=== PATIENT | male | born 1955 | race African-American/Black ===

== ENCOUNTER 2016-12-08 13:16 | Outpatient (RCR) | payer OTHER ==
[2016-12-16] MEDS ORDERED: BP MED (16:00)
[2016-12-16] MEDS ORDERED: METFORMIN (16:00)
== END 2017-01-05 14:50 | disposition home or self-care (01) ==
PROVIDERS: ATTEND Nurse Practitioner
DX: I69.351 Hemiplegia and hemiparesis following cerebral infarction affecting right dominant side (principal); I69.320 Aphasia following cerebral infarction

== ENCOUNTER 2016-12-08 13:16 | Outpatient (RCR) | payer OTHER | END 2016-12-08 15:28 | disposition home or self-care (01) | PROVIDERS: ATTEND Nurse Practitioner | DX: I69.320 Aphasia following cerebral infarction (principal) ==

== ENCOUNTER 2016-12-16 15:48 | Emergency (ER) | payer OTHER ==
[~2016-12-16] VITALS: Ht 177.8 cm; Wt 98.0 kg
[2016-12-16] MEDS ORDERED: METFORMIN (16:00)
[2016-12-16] MEDS ORDERED: BP MED (16:00)
--- NOTE | 2016-12-16 16:35 | ED General ---
General Chief Complaint: Cardiac/General Problems Stated Complaint: HIGH BP Nursing Triage Note: ARRIVED VIA AMB TO ROOM 07 VIA WC FROM OUTPT REHAB. SENT HERE DUE TO X3 HIGH BP READINGS THERE. PT STATES HE HAS TAKEN TWO OF HIS BP MEDS TODAY. DENIES CP OR SOA. PT DOES NOT KNOW NAMES OF MEDICATIONS. Nursing Sepsis Screen: No Definite Risk Source of Information: Patient Exam Limitations: No Limitations History of Present Illness Time Seen by Provider: 16:10 Initial Comments Here from outpatient rehabilitation area. Reportedly has had blood pressure and they were concerned so brought him over here for evaluation. [place] with the [place] [facility] out of [facility]. Patient is on blood pressure medicines and is participating in rehabilitation due to history of multiple CVAs. Patient denies any complaints currently and is at his normal functional status and states feels well otherwise. He does not know his blood pressure medicines. Timing/Duration: 1/2 Hour Severity: Mild Associated Systoms: Denies Symptoms Allergies and Home Medications Allergies Coded Allergies: No Known Drug Allergies (Unverified , 12/16/16) Home Medications [Bp Med] , (Reported) [Metformin] , (Reported) Constitutional: see HPI, No chills, No fever EENTM: no symptoms reported Respiratory: no symptoms reported Cardiovascular: see HPI, No chest pain, No edema Gastrointestinal: No nausea, No vomiting Genitourinary: no symptoms reported Psychiatric/Neurological: No Symptoms Reported, Denies Headache, Pre-Existing Deficit (speech difficulty related to previous stroke as well as weakness on the right side.) Past Ilflkbb-Ieblvt-Bvevts Hx Patient Social History Alcohol Use: Occasionally Uses Recreational Drug Use: No (PAST HX OF COCAINE USE. ) Smoking Status: Current Everyday Smoker Recent Foreign Travel: No Contact w/Someone Who Travel: No Recent Infectious Disease Expo: No Surgeries HX Surgeries: No (does not report any history but poor historian) Cardiovascular Hx Cardiac Disorders: Yes Cardiac Disorders: Coronary Artery Disease, Hypertension Neurological Hx Neurological Disorders: Yes Neurological Disorders: Stroke Endocrine Endocrine Disorders: Diabetes, Non-Insulin dep Psychosocial Behavioral Health Disorders: Depression Physical Exam Vital Signs Vital Sign - Last 12Hours 12/16/16 15:53 Temp 98.0 Pulse 75 Resp 18 B/P (MAP) 178/101 Pulse Ox 97 Capillary Refill : Less Than 3 Seconds General Appearance: No Apparent Distress, WD/WN HEENT: PERRL/EOMI, Pharynx Normal Neck: Non Tender, Supple Respiratory: Lungs Clear, Normal Breath Sounds Cardiovascular: Regular Rate, Rhythm, No Murmur Neurologic/Psychiatric: Alert, Oriented x3, Motor Weakness (right-sided at baseline), Other (speech difficulty and aphasia status post stroke at baseline per patient.) Progress/Results/Core Measures Results/Orders My Orders Orders - ELENITA REDDING MD Amlodipine Tablet (Norvasc Tablet) (12/16/16 16:45) Vital Signs/I&O Vital Sign - Last 12Hours 12/16/16 15:53 Temp 98.0 Pulse 75 Resp 18 B/P (MAP) 178/101 Pulse Ox 97 Blood Pressure Mean: 126 Progress Note : Progress Note Seen and evaluated. I did call the [place] [facility] and was able take get his blood pressure medicines which include metoprolol 50 mg by mouth twice a day and amlodipine 5 mg by mouth every morning. I have requested that the patient follow up in clinic and the triage nurse put a note and they get follow-up within 1 week. We will increase his amlodipine to 10 mg every morning. We will give first dose now. This was discussed with the patient who agreed. Discharged home with return precautions. Patient verbalize understanding instructions and agreement with plan. Departure Impression Impression: Primary Impression: Uncontrolled hypertension Disposition: 01 HOME, SELF-CARE Condition: Improved Departure-Patient Inst. Decision time for Depature: 16:58 Referrals: MAT HARLEY (PCP/Family) Primary Care Physician Patient Instructions: High Blood Pressure (DC) Add. Discharge Instructions: All discharge instructions reviewed with patient and/or family. Voiced understanding. You will need to increase your amlodipine from 5 mg every morning to 10 mg every morning. I did discuss the case with the [place] nurse and she reports that your medication currently is the 10 mg dose that you are splitting and half. Do not take more than 10 mg daily of the amlodipine. Follow-up with the clinic within one week. They should call you but I do recommend that you call the clinic tomorrow for follow-up appointment. They should have a note in your chart documenting the discussion I had with the triage nurse. Return for worse pain, fever, vomiting, weakness, breathing problems or other concerns as needed. ELENITA REDDING MD Dec 16, 2016 16:35
[2016-12-16] MEDS ORDERED: amLODIPine 5 MG (NORVASC) TAB PO ONE (16:45)
[2016-12-16 17:20] VITALS: BP 158/96
== END 2016-12-16 17:20 | disposition home or self-care (01) ==
LOC: EDUNIT# 15:48 → ER 15:50
DX: I10 Essential (primary) hypertension (principal); I25.10 Atherosclerotic heart disease of native coronary artery without angina pectoris; E11.9 Type 2 diabetes mellitus without complications; F32.9 Major depressive disorder, single episode, unspecified; F17.200 Nicotine dependence, unspecified, uncomplicated; Z86.73 Personal history of transient ischemic attack (TIA), and cerebral infarction without residual deficits
CPT/HCPCS: 99283

== ENCOUNTER 2016-12-18 14:49 | Outpatient (RCR) | payer OTHER ==
[~2016-12-18 14:49] MED LIST: BP MED; METFORMIN
== END 2017-01-13 09:52 | disposition home or self-care (01) ==
PROVIDERS: ATTEND Nurse Practitioner
DX: I69.351 Hemiplegia and hemiparesis following cerebral infarction affecting right dominant side (principal); I69.320 Aphasia following cerebral infarction

== ENCOUNTER 2017-03-26 13:58 | Outpatient (RCR) | payer OTHER | END 2017-03-31 10:24 | disposition home or self-care (01) | PROVIDERS: ATTEND Nurse Practitioner | DX: I69.351 Hemiplegia and hemiparesis following cerebral infarction affecting right dominant side (principal); I10 Essential (primary) hypertension; E11.9 Type 2 diabetes mellitus without complications; F32.9 Major depressive disorder, single episode, unspecified; F17.210 Nicotine dependence, cigarettes, uncomplicated ==

== ENCOUNTER 2017-06-24 13:00 | Outpatient (RCR) | payer OTHER | END 2017-06-24 14:51 | disposition home or self-care (01) | PROVIDERS: ATTEND Nurse Practitioner | DX: I69.322 Dysarthria following cerebral infarction (principal) ==

== ENCOUNTER 2017-06-28 13:07 | Outpatient (RCR) | payer OTHER | END 2017-07-05 13:27 | disposition home or self-care (01) | PROVIDERS: ATTEND Nurse Practitioner | DX: R53.1 Weakness (principal); R26.81 Unsteadiness on feet; Z86.73 Personal history of transient ischemic attack (TIA), and cerebral infarction without residual deficits ==

== ENCOUNTER 2021-01-10 18:19 | Emergency (ER) | payer OTHER ==
[~2021-01-10] VITALS: Ht 180.3 cm; Wt 95.2 kg
[~2021-01-10 18:19] MED LIST changes: +CLOP75TA69 PO
[2021-01-10 18:50] VITALS: BP 153/95
--- NOTE | 2021-01-10 19:12 | ED Upper Extremity ---
General Stated Complaint: R HAND LAC Source: patient Exam Limitations: no limitations (SHANNEN WATSON APRN) History of Present Illness Date Seen by Provider: Jan 10, 2021 Time Seen by Provider: 19:08 Initial Comments To ER with laceration of the dorsal aspect of the right pointer finger from a bottle that he was trying to open. Tetanus is not up-to-date. Onset: just prior to arrival Severity: moderate Pain/Injury Location: right 2nd finger Method of Injury: unknown Modifying Factors: Worse With Movement (SHANNEN WATSON APRN) Allergies and Home Medications Allergies Coded Allergies: No Known Drug Allergies (Unverified , 12/16/16) Patient Home Medication List Home Medication List Reviewed: Yes (SHANNEN WATSON APRN) Clopidogrel Bisulfate (Plavix) 75 Mg Tablet, 75 MG PO DAILY Prescribed by: NEHA PLUMMER on 12/27/172012 [Bp Med] , (Reported) Entered as Reported by: BLAS GREER on 12/16/161599 [Metformin] , (Reported) Entered as Reported by: BLAS GREER on 12/16/16 1600 Review of Systems Constitutional: see HPI EENTM: see HPI Respiratory: no symptoms reported Cardiovascular: no symptoms reported Genitourinary: no symptoms reported Musculoskeletal: see HPI Skin: no symptoms reported Psychiatric/Neurological: No Symptoms Reported (SHANNEN WATSON APRN) Past Rzzxhgw-Ysfgig-Yqujbu Hx Past Medical History Surgeries: Yes (HEART STENT) Respiratory: No Cardiac: Yes Coronary Artery Disease, Hypertension Neurological: Yes (STROKE X5, chronic dysarthria and disequilibrium) Stroke Reproductive Disorders: No Genitourinary: No Gastrointestinal: No Musculoskeletal: No Endocrine: Yes Diabetes, Non-Insulin dep HEENT: No Cancer: No Did You Recieve Any Treatments: No Psychosocial: Yes Depression Integumentary: No (SHANNEN WATSON APRN) Physical Exam Vital Signs Vital Signs - First Documented 01/10/21 18:50 Temp 37.4 Pulse 90 Resp 18 B/P (MAP) 153/95 (114) Pulse Ox 98 (NEHA ALEX MD) Vital Signs Capillary Refill : (SHANNEN WATSON APRN) Height, Weight, BMI Height: 5'11.00" Weight: 220lbs. oz. 99.095777qf; BMI Method:Stated General Appearance: WD/WN, no apparent distress Neck: non-tender, full range of motion Respiratory: no respiratory distress, no accessory muscle use Elbow/Forearm: normal inspection, non-tender Wrist: Yes normal inspection Hand: normal inspection, Right, laceration (1cm laceration depth to subq tissue with active bleeding to right middle finger. This was anesthetized locally with 1ml lidocaine without epi, scrubbed with chlorhexidine with saline solution then closed with 3 simple interrupted sutures 5-0 prolene. ) Neurologic/Psychiatric: alert, normal mood/affect, oriented x 3 Skin: normal color, warm/dry (SHANNEN WATSON APRN) Progress/Results/Core Measures Results/Orders Medications Given in ED Current Medications Medications Dose Ordered Sig/Elva Route Start Time Stop Time Status Last Admin Dose Admin Diphtheria/ Tetanus/Acell Pertussis 0.5 ml ONCE ONCE IM 01/10/21 19:15 01/10/21 19:16 DC 01/10/21 19:25 0.5 ML (NEHA ALEX MD) Vital Signs/I&O 01/10/21 18:50 Temp 37.4 Pulse 90 Resp 18 B/P (MAP) 153/95 (114) Pulse Ox 98 (NEHA ALEX MD) Departure Impression Primary Impression: Finger laceration Disposition: 01 HOME, SELF-CARE Condition: Stable Departure-Patient Inst. Decision time for Depature: 19:10 (SHANNEN WATSON APRN) Referrals: NO,LOCAL PHYSICIAN (PCP/Family) Primary Care Physician Patient Instructions: Laceration Repair With Stitches (DC) Add. Discharge Instructions: 1. Return to ER for any concerns 2. You can wash your hands starting this evening but do not soak it in water such as a bathtub hot tub or swimming pool. Return to ER in 7 days to have the stitches removed ATTENDING PHYSICIAN NOTE: I was physically present as attending physician in the emergency department during the care of this patient, but I was not directly involved in the decision making or delivery of care for this patient. (NEHA ALEX MD) SHANNEN WATSON APRN Jan 10, 2021 19:12 NEHA ALEX MD Jan 10, 2021 20:26
[2021-01-10] MEDS ORDERED: TETANUS,DIPTH,PERTUSS P/F (BOOSTRIX) 0.5 ML VIAL IM ONE (19:15)
== END 2021-01-10 19:30 | disposition home or self-care (01) ==
LOC: EDUNIT# 18:19 → ER 18:21
DX: S61.210A Laceration without foreign body of right index finger without damage to nail, initial encounter (principal); I10 Essential (primary) hypertension; E11.9 Type 2 diabetes mellitus without complications; Z86.73 Personal history of transient ischemic attack (TIA), and cerebral infarction without residual deficits; Z23 Encounter for immunization; Z79.01 Long term (current) use of anticoagulants; Z79.84 Long term (current) use of oral hypoglycemic drugs; Z79.899 Other long term (current) drug therapy; W26.8XXA Contact with other sharp object(s), not elsewhere classified, initial encounter
CPT/HCPCS: 12001; 90715

== ENCOUNTER 2021-01-17 16:01 | Emergency (ER) | payer OTHER ==
[~2021-01-17] VITALS: Ht 177.8 cm; Wt 85.7 kg
[2021-01-17 16:05] VITALS: BP 137/68
== END 2021-01-17 16:58 | disposition home or self-care (01) ==
LOC: EDUNIT# 16:01 → ER 16:02
DX: Z48.02 Encounter for removal of sutures (principal)

== ENCOUNTER 2022-06-10 10:44 | Emergency (ER) | payer OTHER ==
[~2022-06-10] VITALS: Ht 177.8 cm; Wt 86.0 kg
[~2022-06-10 10:44] MED LIST changes: +CLOP-31 PO; -CLOP75TA69 PO
--- NOTE | 2022-06-10 10:55 | ED EENT ---
History of Present Illness General Chief Complaint: Nasal Problems Stated Complaint: BLOODY NOSE Source: patient, EMS Exam Limitations: no limitations History of Present Illness Date Seen by Provider: Jun 10, 2022 Time Seen by Provider: 10:48 Initial Comments Patient is a 66-year-old male who presents to the emergency department today with a chief complaint of nosebleed. Patient thinks it started approximately an hour prior to arrival. He denies any pain. No trauma, no nose picking. No recent illnesses. He is not nauseous currently. History of stroke currently on Plavix and aspirin. Has never had nosebleeds before. Timing/Duration: abrupt Severity: severe Location: nose Prearrival Treatment: squeezing nostrils Associated Symptoms: denies symptoms Allergies and Home Medications Allergies Coded Allergies: No Known Drug Allergies (Unverified , 12/16/16) Patient Home Medication List Home Medication List Reviewed: Yes Amoxicillin/Potassium Clav (Amox Tr-K Clv 875-125 mg Tab) 875 Mg-125 Mg Tablet, 1 EACH PO BID Prescribed by: JUMANA ZAPIEN on 06/10/22 1151 Clopidogrel Bisulfate (Plavix) 75 Mg Tablet, 75 MG PO DAILY Prescribed by: NEHA PLUMMER on 12/27/172012 [Bp Med] , (Reported) Entered as Reported by: BLAS GREER on 12/16/161599 [Metformin] , (Reported) Entered as Reported by: BLAS GREER on 12/16/16 1600 Review of Systems Review of Systems Constitutional: see HPI Eyes: No Symptoms Reported Ears: No Symptoms Reported Nose: clots, epistaxis Mouth: no symptoms reported Throat: no symptoms reported Respiratory: no symptoms reported Cardiovascular: no symptoms reported Past Jtpqrxz-Lhakcd-Zibknt Hx Immunizations Up To Date First/Initial COVID19 Vaccinat: DECEMBER 2020 Second COVID19 Vaccination Luis: 01-08-21 Past Medical History Surgeries: Yes (HEART STENT) Respiratory: No Cardiac: Yes Coronary Artery Disease, Hypertension Neurological: Yes (STROKE X5, chronic dysarthria and disequilibrium) Stroke Reproductive Disorders: No Genitourinary: No Gastrointestinal: No Musculoskeletal: No Endocrine: Yes Diabetes, Non-Insulin dep HEENT: No Cancer: No Did You Recieve Any Treatments: No Psychosocial: Yes Depression Integumentary: No Physical Exam Vital Signs Vital Signs - First Documented 06/10/22 10:44 Pulse 62 Resp 16 B/P (MAP) 180/112 (134) Pulse Ox 98 O2 Delivery Room Air Height, Weight, BMI Height: 5'11.00" Weight: 220lbs. oz. 99.592225kg; 29.00 BMI Method:Actual General Appearance: WD/WN, no apparent distress Eyes: bilateral eye normal inspection, bilateral eye PERRL, bilateral eye EOMI Ears: bilateral ear auricle normal, bilateral ear TM normal Nose: active bleeding (left nare) Mouth/Throat: pharynx normal, other (blood posterior pharynx; otherwise normal oral mucosa) Neck: supple, normal inspection Cardiovascular: regular rate, rhythm Respiratory: lungs clear, normal breath sounds, no respiratory distress, no accessory muscle use Gastrointestinal: non tender, soft Neurologic/Psychiatric: alert, normal mood/affect, oriented x 3 Skin: normal color, warm/dry Procedures/Interventions Nasal : Nasal Location: Left Clots Cleared from Nasal: Patient Blowing Nasal Drops Instilled: Afrin, Lidocaine Nasal Procedures: Rapid Rhino Progress rapid rhino soaked in a 2:1:1 mixture of Afrin/Lido 1% with Epi and TXA; i nserted into left nare. 1130am Progress/Results/Core Measures Results/Orders Lab Results My Orders Medications Given in ED Vital Signs/I&O Progress Progress Note : Time: 11:45 Progress Note Patient seen and evaluated by me, 66-year-old with a nosebleed onset this morning. Evaluation today includes physical exam. CBC was obtained to evaluate hemoglobin. His vital signs are stable. Differential diagnosis anterior versus posterior nosebleed. On examination after having the patient clear his nasal passageways the left nare shows many areas of irritation along the septum with continued oozing of blood. Pressure had been maintained for approximately 20 to 25 minutes prior to evacuation of the clots and bleeding from the left nare. Rapid Rhino was soaked in a 2 to one-to-one ratio of Afrin, lido with epi and TXA. It was placed with some discomfort. Patient did experience several bouts of sneezing. Hemostasis appears to have been achieved after placement. Patient will be placed on Augmentin for 1 week. Advised to follow-up with his primary care doctor also given referral information for Dr. Trujillo's ENT clinic. His sister, whom he lives with is at the bedside. I have communicated the plan of care with her. All questions are sought and answered. Patient is improved at discharge. Departure Impression Primary Impression: Epistaxis Disposition: 01 HOME, SELF-CARE Condition: Improved Departure-Patient Inst. Decision time for Depature: 11:47 Referrals: TESSA TRUJILLO MD NO,LOCAL PHYSICIAN (PCP) Primary Care Physician Patient Instructions: Nosebleeds ED Add. Discharge Instructions: Keep the nasal tampon in place for the next 3 days. I have written a prescription for an antibiotic that you need to take twice a day for the next 5 days. If you experience any return of bleeding, fevers, increased facial pain or any other emergent concerns please come back to the emergency room for reevaluation. I have given you contact information for Dr. Trujillo, ENT doctor. Please make an appointment to see him, possibly Wednesday. Otherwise your primary care physician can remove the nasal packing Wednesday Scripts Amoxicillin/Potassium Clav (Amox Tr-K Clv 875-125 mg Tab) 875 Mg-125 Mg Tablet 1 EACH PO BID for 5 Days, #10 TAB Prov: JUMANA ZAPIEN MD 06/10/22 JUMANA ZAPIEN MD Jun 10, 2022 10:55
[2022-06-10] MEDS ORDERED: TRANEXAMIC ACID INJECTION 1,000 MG in NS (IVPB) 50 ML IV ONE (11:00)
[2022-06-10] MEDS ORDERED: OXYMETAZOLINE (AFRIN) 0.05% NA 30 ML BTL ONE (11:00)
[2022-06-10] MEDS ORDERED: TRANEXAMIC ACID 100 MG/ML 10 ML INJECTION ONE (11:00)
[2022-06-10] MEDS ORDERED: LIDOCAINE/EPI 2% 1:100,00 (XYLOCAINE) 20 ML VIAL INJ ONE (11:00)
[2022-06-10] MEDS ORDERED: amLODIPine 10 MG (NORVASC) TAB PO ONE (11:15)
[2022-06-10] MEDS ORDERED: meTOproloL SUCCINATE 50 MG (TOPROL XL) TAB PO SCH (11:15)
[2022-06-10 11:39] LABS: BASOPHILS # (AUTO) 0.1 10^3/uL (0.0-0.1); BASOPHILS % (AUTO) 1 % (0-10); EOSINOPHILS # (AUTO) 0.2 10^3/uL (0.0-0.3); EOSINOPHILS % (AUTO) 2 % (0-10); HEMATOCRIT 47 % (40-54); HEMOGLOBIN 14.7 g/dL (13.3-17.7); LYMPHOCYTES # (AUTO) 1.6 10^3/uL (1.0-4.0); LYMPHOCYTES % (AUTO) 21 % (12-44); MEAN CORPUSCULAR HEMOGLOBIN 25 pg (25-34); MEAN CORPUSCULAR HGB CONC 32 g/dL (32-36); MEAN CORPUSCULAR VOLUME 78 fL (80-99); MEAN PLATELET VOLUME 10.4 fL (9.0-12.2); MONOCYTES # (AUTO) 0.6 10^3/uL (0.0-1.0); MONOCYTES % (AUTO) 8 % (0-12); NEUTROPHILS # (AUTO) 5.3 10^3/uL (1.8-7.8); NEUTROPHILS % (AUTO) 69 % (42-75); PLATELET COUNT 194 10^3/uL (130-400); WHITE BLOOD COUNT 7.7 10^3/uL (4.3-11.0)
[2022-06-10] MEDS ORDERED: AMOX1TAB12 PO (11:51)
[2022-06-10 12:40] VITALS: BP 163/100
[2022-06-10] MEDS ORDERED: OXYMETAZOLINE (AFRIN) 0.05% NA 30 ML BTL SCH (21:00)
== END 2022-06-10 12:41 | disposition home or self-care (01) ==
LOC: EDUNIT# 10:49 → ER 10:50
DX: R04.0 Epistaxis (principal); Z86.73 Personal history of transient ischemic attack (TIA), and cerebral infarction without residual deficits; Z79.82 Long term (current) use of aspirin; Z79.02 Long term (current) use of antithrombotics/antiplatelets
CPT/HCPCS: 30901; 36415; 85025

== ENCOUNTER 2023-01-19 14:55 | Observation (INO) | payer OTHER ==
[~2023-01-19] VITALS: Ht 180 cm; Wt 96.3 kg
[~2023-01-19 14:55] MED LIST changes: +AMOX1TAB12 PO
--- NOTE | 2023-01-19 15:16 | ED Neurological Problem ---
General Chief Complaint: Neuro-Stroke Like Symptoms Stated Complaint: POSSIBLE STROKE Source: patient, family, EMS Exam Limitations: no limitations History of Present Illness Date Seen by Provider: Jan 19, 2023 Time Seen by Provider: 15:18 Initial Comments Patient presents via EMS for reported stroke. [facility] health nurse arrived [facility] today, patient has baseline weakness on the right side and some dysphagia secondary to previous strokes. He has had 10 strokes in the past most recent 5 years ago. Home health reportedly told EMS that he seemed to be weaker on both sides and had worsening word searching. Upon arrival patient denies feeling weaker on one side or the other he is alert and oriented able to follow commands. He will spell words that he feels that he cannot pronounce correctly. Sister is in room and states that patient appears to be at baseline. Neither patient nor sister seem significantly concerned. Advised that based on evaluation and report last known well time was Wednesday when patient visited his sister therefore not a tPA candidate in either case. Although sister states he is at his baseline currently. Patient denies recent illness change in medication or other symptoms concerns or problems. Severity: mild Associated Symptoms: denies symptoms Allergies and Home Medications Allergies Coded Allergies: No Known Drug Allergies (Unverified , 12/16/16) Patient Home Medication List Home Medication List Reviewed: Yes Amlodipine Besylate (Amlodipine Besylate) 10 Mg Tablet, 10 MG PO DAILY, (Reported) Entered as Reported by: BLAS GREER on 01/19/231725 Last Action: New Order Atorvastatin Calcium (Atorvastatin Calcium) 80 Mg Tablet, 80 MG PO HS, (Reported) Entered as Reported by: BLAS GREER on 01/19/231725 Last Action: New Order Clopidogrel Bisulfate (Plavix) 75 Mg Tablet, 75 MG PO DAILY Prescribed by: NEHA PLUMMER on 12/27/172012 Gabapentin (Gabapentin) 300 Mg/6 Ml (6 Ml) Solution, 300 MG PO HS, (Reported) Entered as Reported by: BLAS GREER on 01/19/231726 Last Action: New Order Metformin HCl (Metformin HCl) 500 Mg Tablet, 500 MG PO BID, (Reported) Entered as Reported by: BLAS GREER on 01/19/231726 Last Action: New Order Metoprolol Succinate (Toprol Xl) 50 Mg Tab.er.24h, 50 MG PO DAILY, (Reported) Entered as Reported by: BLAS GREER on 01/19/231725 Last Action: New Order [Sinasterive] , 5 MG PO DAILY, (Reported) Entered as Reported by: BLAS GREER on 01/19/231726 Last Action: New Order Discontinued Medications Amoxicillin/Potassium Clav (Amox Tr-K Clv 875-125 mg Tab) 875 Mg-125 Mg Tablet, 1 EACH PO BID Discontinued Reason: No Longer Taking Prescribed by: JUMANA ZAPIEN on 06/10/22 1151 Last Action: Discontinued [Bp Med] , (Reported) Discontinued Reason: No Longer Taking Entered as Reported by: BLAS GREER on 12/16/161599 Last Action: Discontinued [Metformin] , (Reported) Discontinued Reason: No Longer Taking Entered as Reported by: BLAS GREER on 12/16/161599 Last Action: Discontinued Review of Systems Review of Systems Constitutional: no symptoms reported Eyes: No Symptoms Reported Ears, Nose, Mouth, Throat: no symptoms reported Respiratory: no symptoms reported Cardiovascular: no symptoms reported Gastrointestinal: no symptoms reported Genitourinary: no symptoms reported Musculoskeletal: no symptoms reported Skin: no symptoms reported Psychiatric/Neurological: No Symptoms Reported Endocrine: No Symptoms Reported Hematologic/Lymphatic: No Symptoms Reported All Other Systems Reviewed Negative Unless Noted: Yes Past Lfqzfyl-Pmigsk-Hqzaxo Hx Patient Social History Tobacco Use?: Yes Smoking Status: Current Everyday Smoker Substance use?: No Alcohol Use?: No Pt feels they are or have been: No Immunizations Up To Date First/Initial COVID19 Vaccinat: RECEIVED, UNK WHEN Second COVID19 Vaccination Luis: RECEIVED, UNK WHEN Third COVID19 Vaccination Date: DECEMBER 2020 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 Past Medical History Surgeries: Yes (HEART STENT) Respiratory: No Cardiac: Yes Coronary Artery Disease, Hypertension Neurological: Yes (STROKE X5, chronic dysarthria and disequilibrium) Stroke Reproductive Disorders: No Genitourinary: No Gastrointestinal: No Musculoskeletal: No Endocrine: Yes Diabetes, Non-Insulin dep HEENT: No Cancer: No Did You Recieve Any Treatments: No Psychosocial: Yes Depression Integumentary: No Physical Exam Vital Signs Vital Signs - First Documented 01/19/23 15:00 Temp 36.8 Pulse 79 Resp 16 B/P (MAP) 184/122 (142) Pulse Ox 96 O2 Delivery Room Air Capillary Refill : Height, Weight, BMI Height: 5'11.00" Weight: 220lbs. oz. 99.308102mg; 27.00 BMI Method:Actual General Appearance: WD/WN, no apparent distress HEENT: PERRL/EOMI, normal ENT inspection, pharynx normal Neck: non-tender, full range of motion, supple Respiratory: chest non-tender, lungs clear, normal breath sounds, no respiratory distress, no accessory muscle use Cardiovascular: regular rate, rhythm, no edema Gastrointestinal: normal bowel sounds, non tender, soft Back: normal inspection, no CVA tenderness Extremities: normal range of motion, non-tender, normal inspection, no pedal edema, no calf tenderness Neurologic/Psychiatric: alert, normal mood/affect, oriented x 3, other (Patient is at baseline per sister) Motor/Sensory: weak motor strength RUE (Residual from old stroke) Skin: normal color, warm/dry Lymphatic: no adenopathy Stroke Onset of Symptoms Date of Onset of Symptoms: Jan 17, 2023 Symptoms onset unknown: Yes NIH Stroke Scale Assessment Select: Initial Level of Consciousness: 0=Alert (0), Level of Consciousness- Questions: 0=Answers both month/age (0), LOC Commands: 0=Performs both tasks (0), Gaze: Normal (0), Visual [place]: 0=No visual loss (0), Facial Movement (Facial Paresis): 1=Minor paralysis (1), Motor Function-Arms Right: 1=Drift (1), Motor Function-Arms Left: 0=No drift (0), Motor Function-Legs Right: 0=No drift (0), Motor Function-Legs Left: 0=No drift (0), Limb Ataxia: 2=Present in two limbs (2), Sensory: 0=Normal:no loss (0), Best Language: 1=Mild to moderat aphasia (1), Dysarthria: 1=Mild to moderate loss (1), Extinction & Inattention: 0=No abnormality (0), Total: 6 Stroke Thrombolytic Exclusion Age 18 or Over: Yes Acute intenal hemorrhage: No History of CVA: Yes Uncontrolled Coagulation Defec: No Intracranial Hemorrhage: No Severe Hypertension: Yes GI or Bleed: No Subarachnoid Hemorrhage: No Intracranial Neoplasm/Aneurysm: No Oral Anticoagulants: Yes Surgery or Trauma: No Puncture of Non-Compressible V: No Recent CPR: No Diabetic Hemorrhagic Retinopat: No Organ Biopsy: No Recent Obstetric Delivery: No Glucose: No Significant Hepatic Dysfunctio: No NIH Stoke Scale >22: No Bacterial Endocarditis: No Pericarditis: No Improving Symptoms: Yes Platelets: No TPA Contraindication: Yes IV - TPa Received IV - TPa Procedure Performed?: No Progress/Results/Core Measures Results/Orders Lab Results Laboratory Tests Test 01/19/23 15:02 01/19/23 15:04 01/19/23 16:45 Range/Units White Blood Count 7.2 4.3-11.0 10^3/uL Red Blood Count 6.44 H 4.30-5.52 10^6/uL Hemoglobin 15.8 13.3-17.7 g/dL Hematocrit 50 40-54 % Mean Corpuscular Volume 77 L 80-99 fL Mean Corpuscular Hemoglobin 25 25-34 pg Mean Corpuscular Hemoglobin Concent 32 32-36 g/dL Red Cell Distribution Width 16.3 H 10.0-14.5 % Platelet Count 179 130-400 10^3/uL Mean Platelet Volume 10.3 9.0-12.2 fL Immature Granulocyte % (Auto) 0 % Neutrophils (%) (Auto) 59 42-75 % Lymphocytes (%) (Auto) 30 12-44 % Monocytes (%) (Auto) 8 0-12 % Eosinophils (%) (Auto) 2 0-10 % Basophils (%) (Auto) 1 0-10 % Neutrophils # (Auto) 4.2 1.8-7.8 10^3/uL Lymphocytes # (Auto) 2.2 1.0-4.0 10^3/uL Monocytes # (Auto) 0.6 0.0-1.0 10^3/uL Eosinophils # (Auto) 0.1 0.0-0.3 10^3/uL Basophils # (Auto) 0.1 0.0-0.1 10^3/uL Immature Granulocyte # (Auto) 0.0 0.0-0.1 10^3/uL Prothrombin Time 13.2 12.2-14.7 SEC INR Comment 1.0 0.8-1.4 Activated Partial Thromboplast Time 40 H 24-35 SEC Sodium Level 142 135-145 MMOL/L Potassium Level 3.8 3.6-5.0 MMOL/L Chloride Level 108 H 98-107 MMOL/L Carbon Dioxide Level 24 21-32 MMOL/L Anion Gap 10 5-14 MMOL/L Blood Urea Nitrogen 10 7-18 MG/DL Creatinine 1.31 H 0.60-1.30 MG/DL Estimat Glomerular Filtration Rate 60 BUN/Creatinine Ratio 8 Glucose Level 126 H 70-105 MG/DL Calcium Level 9.5 8.5-10.1 MG/DL Corrected Calcium 9.2 8.5-10.1 MG/DL Total Bilirubin 0.8 0.1-1.0 MG/DL Aspartate Amino Transf (AST/SGOT) 28 5-34 U/L Alanine Aminotransferase (ALT/SGPT) 25 0-55 U/L Alkaline Phosphatase 70 40-136 U/L Troponin I < 0.028 <0.028 NG/ML Total Protein 7.6 6.4-8.2 GM/DL Albumin 4.4 3.2-4.5 GM/DL Glucometer 139 H 70-110 MG/DL Urine Color YELLOW Urine Clarity CLEAR Urine pH 6.0 5-9 Urine Specific [place] >=1.030 1.016-1.022 Urine Protein 1+ H NEGATIVE Urine Glucose (UA) NEGATIVE NEGATIVE Urine Ketones NEGATIVE NEGATIVE Urine Nitrite NEGATIVE NEGATIVE Urine Bilirubin NEGATIVE NEGATIVE Urine Urobilinogen 0.2 < = 1.0 MG/DL Urine Leukocyte Esterase NEGATIVE NEGATIVE Urine RBC (Auto) TRACE H NEGATIVE Urine RBC RARE /HPF Urine WBC 2-5 /HPF Urine Squamous Epithelial Cells RARE /HPF Urine Crystals NONE /LPF Urine Bacteria FEW H /HPF Urine Casts NONE /LPF Urine Mucus NEGATIVE /LPF Urine Culture Indicated YES My Orders Orders - ERIK BARNHART W DO Cbc With Automated Diff (01/19/23 15:07) Protime With Inr (01/19/23 15:07) Partial Thromboplastin Time (01/19/23 15:07) Comprehensive Metabolic Panel (01/19/23 15:07) Troponin I Megan (01/19/23 15:07) Ua Culture If Indicated (01/19/23 15:07) Chest 1 View, Ap/Pa Only (01/19/23 15:07) Ekg Tracing (01/19/23 15:07) Accucheck Stat ONCE (01/19/23 15:07) Ed Iv/Invasive Line Start (01/19/23 15:07) Vital Signs Stroke Patient Q15M (01/19/23 15:07) Ct Head Wo-R/O Stroke (01/19/23 15:07) Labetalol Injection (Sdv) (Labetalol Inj (01/19/23 16:00) Ed Admission (Communication) (01/19/23 17:02) Urine Culture (01/19/23 16:45) Medications Given in ED Current Medications Medications Dose Ordered Sig/Elva Route Start Time Stop Time Status Last Admin Dose Admin Labetalol HCl 20 mg ONCE ONCE IV 01/19/23 16:00 01/19/23 16:01 DC 01/19/23 16:02 10 MG Vital Signs/I&O 01/19/23 01/19/23 15:00 15:31 Temp 36.8 Pulse 79 71 Resp 16 14 B/P (MAP) 184/122 (142) 183/112 Pulse Ox 96 97 O2 Delivery Room Air Progress Progress Note : Time: 15:10 Progress Note Very pleasant alert and oriented 67-year-old male presents to the emergency department via EMS after home health called 911. Home health nurse stated that patient who has a history of multiple strokes, at least 10 in the past the last being roughly 5 years ago, stated that he seemed like his words were more slurred and that he seemed more generally weak today. Patient's last stroke left him weak on the right side and with some slurring of his words at baseline. Sister is with him in the room, she states that she spoke with patient on the phone earlier today and he sounded normal to her, she states that he sounds normal currently in the emergency department, he does have some dysphagia and s ome slurring of his words but answers all questions appropriately and spells words that he cannot speak clearly. She states that she was not concerned when she spoke with him on the phone earlier. When she is in the room now she states that he is at his baseline currently and does not seem to be weaker or in any significant distress. Patient is on Plavix. Sister states that patient was over to her house Wednesday and appeared at his normal baseline, per stroke protocol this makes last known well time 2 days ago. However sister states that he is currently at his baseline. Accu-Chek was in the 1 teens per EMS. Vital signs are stable he is somewhat hypertensive showing 185/119 on our automated blood pressure cuff heart rate of 79. We will provide him with labetalol and aspirin per protocol. We will obtain lab work and CT head as well as chest x- ray. Patient denies any complaints denies any recent illnesses denies any new medications. He follows all commands he is noticeably weaker on the right but sister states that this is normal for him. Again patient states he does not feel weaker on one side or the other and is not having any more difficulty searching for his words than usual. They agree with plan to evaluate for stroke or metabolic abnormality, anemia or evidence of leukocytosis or any other reason that may cause him to have appeared different to the home health nurse. Patient states that he does not know this home health nurse well therefore suspect she may not be too familiar with his baseline status however will evaluate as if an acute neurologic event in either case. 1621 labs reviewed nothing remarkable. CT does not show anything acute per my initial view when compared to prior. Chest x-ray is negative for any acute processes. CT head confirmed by radiology read as well as chest x-ray. EKG does show inverted T waves in the lateral leads I do not have an old one with which to compare. He does have PACs as well but no shortness of breath no chest pain suspect old. Patient and sister both insist he is at baseline. Initial ECG Impression Date: Jan 19, 2023 Initial ECG Impression Time: 15:34 Initial ECG Rhythm: Normal Sinus, PAC Initial ECG Comparisson: No Previous ECG Available Comment Inverted T waves in the lateral leads, no reciprocal changes. Diagnostic Imaging Diagonstic Imaging: Xray (chest nad), CT Comments CT head report- COMPARISON: Head CT of 12/27/2017. FINDINGS: Chronic atrophy and ventriculomegaly are stable. There are extensive intracranial atherosclerotic vascular calcifications. There is some periventricular white matter hypodensity as a chronic finding albeit mildly increased in the interim. No sulcal effacement. No findings of cortical edema. There is no hemorrhage. No features of elevation of the intracranial pressures. No mass effect. There is no hemorrhage. No abnormal extra-axial fluid collection. IMPRESSION: There is some chronic atrophy and progressive white matter small vessel disease. Atherosclerotic calcifications are chronic. No hemorrhage, edema, or acute finding is apparent. Departure Impression Primary Impression: Hypertensive urgency Disposition: 09 ADMITTED INPATIENT Condition: Stable Departure-Patient Inst. Referrals: NO,LOCAL PHYSICIAN (PCP/Family) Primary Care Physician ERIK BARNHART DO Jan 19, 2023 15:16
[2023-01-19 15:24] LABS: BASOPHILS # (AUTO) 0.1 10^3/uL (0.0-0.1); BASOPHILS % (AUTO) 1 % (0-10); EOSINOPHILS # (AUTO) 0.1 10^3/uL (0.0-0.3); EOSINOPHILS % (AUTO) 2 % (0-10); HEMATOCRIT 50 % (40-54); HEMOGLOBIN 15.8 g/dL (13.3-17.7); LYMPHOCYTES # (AUTO) 2.2 10^3/uL (1.0-4.0); LYMPHOCYTES % (AUTO) 30 % (12-44); MEAN CORPUSCULAR HEMOGLOBIN 25 pg (25-34); MEAN CORPUSCULAR HGB CONC 32 g/dL (32-36); MEAN CORPUSCULAR VOLUME 77 fL (80-99); MEAN PLATELET VOLUME 10.3 fL (9.0-12.2); MONOCYTES # (AUTO) 0.6 10^3/uL (0.0-1.0); MONOCYTES % (AUTO) 8 % (0-12); NEUTROPHILS # (AUTO) 4.2 10^3/uL (1.8-7.8); NEUTROPHILS % (AUTO) 59 % (42-75); PLATELET COUNT 179 10^3/uL (130-400); WHITE BLOOD COUNT 7.2 10^3/uL (4.3-11.0)
[2023-01-19 15:28] LABS: PROTHROMBIN TIME PATIENT 13.2 SEC (12.2-14.7)
[2023-01-19 15:31] VITALS: BP 183/112
[2023-01-19 15:34] LABS: ALANINE AMINOTRANSFERASE 25 U/L (0-55); ALBUMIN 4.4 GM/DL (3.2-4.5); ALKALINE PHOSPHATASE 70 U/L (40-136); BILIRUBIN,TOTAL 0.8 MG/DL (0.1-1.0); BUN/CREATININE RATIO 8; CALCIUM 9.5 MG/DL (8.5-10.1); CARBON DIOXIDE 24 MMOL/L (21-32); CHLORIDE 108 MMOL/L (98-107); CREATININE SERUM 1.31 MG/DL (0.60-1.30); GFR ESTIMATED 60; GLUCOSE 126 MG/DL (70-105); POTASSIUM 3.8 MMOL/L (3.6-5.0); SODIUM 142 MMOL/L (135-145); TOTAL PROTEIN 7.6 GM/DL (6.4-8.2)
--- NOTE | 2023-01-19 15:39 | Diagnostic Imaging Report ---
INDICATION: Stroke. COMPARISON: 12/27/2017. FINDINGS: Lungs are clear. No failure, effusion, or pneumothorax. IMPRESSION: No acute appearing abnormality. Dictated by: Dictated on workstation # [id number]
--- NOTE | 2023-01-19 15:39 | Diagnostic Imaging Report ---
PROCEDURE: CT head without r/o stroke. TECHNIQUE: Multiple contiguous axial images were obtained through the brain without the use of intravenous contrast. Auto Exposure Controls were utilized during the CT exam to meet ALARA standards for radiation dose reduction. INDICATION: New onset left-sided weakness and slurred speech. History of previous stroke resulting in a right-sided deficit. Home Health reports a change in the neurologic status. COMPARISON: Head CT of 12/27/2017. FINDINGS: Chronic atrophy and ventriculomegaly are stable. There are extensive intracranial atherosclerotic vascular calcifications. There is some periventricular white matter hypodensity as a chronic finding albeit mildly increased in the interim. No sulcal effacement. No findings of cortical edema. There is no hemorrhage. No features of elevation of the intracranial pressures. No mass effect. There is no hemorrhage. No abnormal extra-axial fluid collection. IMPRESSION: There is some chronic atrophy and progressive white matter small vessel disease. Atherosclerotic calcifications are chronic. No hemorrhage, edema, or acute finding is apparent. Dictated by: Dictated on workstation # [id number]
[2023-01-19] MEDS ORDERED: LABETALOL 5 mg/ml 4 ML SINGLE DOSE SYRINGE IV ONE (16:00)
[2023-01-19 17:20] LABS: CLARITY,URINE CLEAR; COLOR,URINE YELLOW
[2023-01-19 17:21] LABS: BACTERIA,URINE FEW /HPF; BILIRUBIN,URINE NEGATIVE (NEGATIVE); GLUCOSE, URINE (UA) NEGATIVE (NEGATIVE); KETONES,URINE NEGATIVE (NEGATIVE); LEUKOCYTE ESTERASE ,URINE NEGATIVE (NEGATIVE); NITRITE,URINE NEGATIVE (NEGATIVE); PROTEIN,URINE 1+ (NEGATIVE); RBC,URINE RARE /HPF; SQUAMOUS EPITHELIAL CELL,UR RARE /HPF
[2023-01-19] MEDS ORDERED: AMLO-251 PO (17:26)
[2023-01-19] MEDS ORDERED: METO-352 PO (17:26)
[2023-01-19] MEDS ORDERED: ATOR80TA76 PO (17:26)
[2023-01-19] MEDS ORDERED: GABA300S3 PO (17:27)
[2023-01-19] MEDS ORDERED: [UNRECOGNIZED DRUG - OTHER] PO (17:27)
[2023-01-19] MEDS ORDERED: METF-397 PO (17:27)
[2023-01-19] MEDS ORDERED: CATHETER FLUSH 10 ML SYR IVP PRN (18:00)
[2023-01-19] MEDS ORDERED: diphenhydrAMINE INJ 50 MG/ML VIAL IVP PRN (19:15)
[2023-01-19] MEDS ORDERED: CALCIUM CARBONATE 500 MG CHEW TABLET PO PRN (19:15)
[2023-01-19] MEDS ORDERED: BISACODYL 10 MG SUPPOSITORY PR PRN (19:15)
[2023-01-19] MEDS ORDERED: ONDANSETRON INJECTION 4 MG/2 ML (SDV) IV PRN (19:15)
[2023-01-19] MEDS ORDERED: MILK OF MAGNESIA 400 MG/5 ML 30 ML UDC PO PRN (19:15)
[2023-01-19] MEDS ORDERED: MELATONIN 3 MG TABLET PO PRN (19:15)
[2023-01-19] MEDS ORDERED: ONDANSETRON 4 MG ORAL DISSOLVE TABLET PO PRN (19:15)
[2023-01-19] MEDS ORDERED: diphenhydrAMINE 25 MG TABLET PO PRN (19:15)
[2023-01-19] MEDS ORDERED: ANTACID SUSPENSION 30 ML UDC PO PRN (19:15)
[2023-01-19] MEDS ORDERED: ACETAMINOPHEN 325 MG TABLET PO PRN (19:15)
[2023-01-19] MEDS ORDERED: LACTULOSE SYRUP 10GM/15ML 30ML UDC PO PRN (19:15)
[2023-01-19] MEDS: ENOXAPARIN 40 MG/0.4 ML SYRINGE SC SCH (19:40)
[2023-01-19] MEDS: hydrALAZINE INJECTION 20 MG/ML VIAL IV PRN (19:40)
[2023-01-19] MEDS: GABAPENTIN 300 MG CAPSULE PO SCH (20:19)
[2023-01-19] MEDS: DOCUSATE SODIUM 100 MG CAPSULE PO SCH (20:34)
[2023-01-19] MEDS: SENNOSIDES 8.6 MG TABLET PO SCH (20:34)
[2023-01-19] MEDS: inSUlin ASPART 1 UNIT/0.01 ML (PER UNIT) SC SCH (21:00)
[2023-01-19] MEDS: CATHETER FLUSH 10 ML SYR IVP SCH (22:23)
[2023-01-20] MEDS: hydrALAZINE INJECTION 20 MG/ML VIAL IV PRN ×2 (01:07→10:55)
[2023-01-20 04:39] LABS: BASOPHILS # (AUTO) 0.1 10^3/uL (0.0-0.1); BASOPHILS % (AUTO) 1 % (0-10); EOSINOPHILS # (AUTO) 0.2 10^3/uL (0.0-0.3); EOSINOPHILS % (AUTO) 3 % (0-10); HEMATOCRIT 46 % (40-54); HEMOGLOBIN 14.7 g/dL (13.3-17.7); LYMPHOCYTES # (AUTO) 2.4 10^3/uL (1.0-4.0); LYMPHOCYTES % (AUTO) 27 % (12-44); MEAN CORPUSCULAR HEMOGLOBIN 25 pg (25-34); MEAN CORPUSCULAR HGB CONC 32 g/dL (32-36); MEAN CORPUSCULAR VOLUME 77 fL (80-99); MEAN PLATELET VOLUME 11.3 fL (9.0-12.2); MONOCYTES # (AUTO) 0.9 10^3/uL (0.0-1.0); MONOCYTES % (AUTO) 10 % (0-12); NEUTROPHILS # (AUTO) 5.4 10^3/uL (1.8-7.8); NEUTROPHILS % (AUTO) 60 % (42-75); PLATELET COUNT 183 10^3/uL (130-400)
[2023-01-20 04:49] LABS: ALBUMIN 3.9 GM/DL (3.2-4.5); POTASSIUM 3.3 MMOL/L (3.6-5.0)
[2023-01-20 04:50] LABS: CALCIUM 9.1 MG/DL (8.5-10.1)
[2023-01-20 04:51] LABS: TOTAL PROTEIN 6.9 GM/DL (6.4-8.2)
[2023-01-20 04:53] LABS: BILIRUBIN,TOTAL 0.7 MG/DL (0.1-1.0)
[2023-01-20 04:55] LABS: CREATININE SERUM 1.2 MG/DL (0.60-1.30); PHOSPHORUS 3.6 MG/DL (2.3-4.7)
[2023-01-20 04:58] LABS: MAGNESIUM 2.1 MG/DL (1.6-2.4)
[2023-01-20] MEDS: POTASSIUM CL 10MEQ/50ML IVPB 50 ML IV SCH ×8 (05:29→12:54)
[2023-01-20] MEDS: MAGNESIUM 1 GM/100 ML IVPB 100 ML IV SCH (05:29)
[2023-01-20] MEDS: inSUlin ASPART 1 UNIT/0.01 ML (PER UNIT) SC SCH ×4 (05:29→21:02)
[2023-01-20] MEDS: POTASSIUM CHLORIDE 20 MEQ TABLET PO SCH (05:29)
[2023-01-20] MEDS ORDERED: NS IV 500 ML 500 ML IV PRN (05:30)
[2023-01-20] MEDS ORDERED: POTASSIUM CL 10MEQ/50ML IVPB 400 ML IV ONE (06:03)
[2023-01-20] MEDS: CATHETER FLUSH 10 ML SYR IVP SCH ×3 (06:07→21:04)
[2023-01-20 08:33] LABS: CHOLESTEROL 161 MG/DL (< 200); HDL CHOLESTEROL 46 MG/DL (40-60); TRIGLYCERIDES 174 MG/DL (<150); VLDL CHOLESTEROL 35 MG/DL (5-40)
[2023-01-20] MEDS: amLODIPine 10 MG TABLET PO SCH (08:40)
[2023-01-20] MEDS: CLOPIDOGREL 75 MG TABLET PO SCH (08:40)
[2023-01-20] MEDS: SENNOSIDES 8.6 MG TABLET PO SCH ×2 (08:41→20:23)
[2023-01-20] MEDS: DOCUSATE SODIUM 100 MG CAPSULE PO SCH ×2 (08:41→20:23)
--- NOTE | 2023-01-20 10:20 | Tele-ICU Progress Note ---
Subjective Date Seen by a Provider: Jan 20, 2023 Time Seen by a Provider: 10:20 Subjective/Events-last exam (Tele-ICU Physician , Progress Note ) Service provided via interactive audio and video telecommunications E-CARE system to a patient admitted to ICU bed in [facility]. Patient is seen today due to persistent need of ICU care Available chart/ vitals / labs / Images reviewed Video assessment done using teleICU camera, rest of exam as per RN Discussed with RN Events overnight : Afebrile hemodynamically stable Respiratory - ra I/O = Drips: Pressors- no Hospital course: (01/19) 67 Y/O Male R/O CVA as stated by Home Health RN as to being somewhat weaker than usual and worsening word searching. Family states he is at his baseline. , out of window for tPA. Symptoms maybe related to his Hypertension. A/P Hypertensive urgency - resumed PO meds , symptoms at baseline now Suspected CVA - CTH - no now findings - Symptoms maybe related to his Hypertension. -- at his baseline. , out of window for tPA. Lines : periph , (Central Line Necessity Reviewed) Otero: void OG: Nutrition: Analgesia: Anxiety/ delirium VTE Prophylaxis: carter 40 Stress Ulcer Prophylaxis: n a Plans in collaboration with bedside consultants and IM MDs. Discussed with RN to reach out if any questions or concerns Case and care daily discussed on multidisciplinary rounds ( RN, PharmD, Roller Hand , Respiratory Therapy, police worker ) A total of 10 minutes of critical care time was devoted to this patient today, required to treat and/or prevent further deterioration of critical care condition ( as above ) . I am remotely monitoring this patient from another state. I am unable to do the bedside exam, and history/physical and pertinent information is taken from other notes in the computer and bedside staff. Sepsis Event Evaluation Height, Weight, BMI Height: 5'11.00" Weight: 220lbs. oz. 99.165407gx; 29.47 BMI Method:Actual Exam Exam Patient acknowledged, consented, and participated in this virtual visit which was conducted using real time audio/video Vital Signs Date Time Temp Pulse Resp B/P (MAP) Pulse Ox O2 Delivery O2 Flow Rate FiO2 01/20/23 09:00 80 24 156/96 (116) 96 Room Air 01/20/23 08:20 Room Air 01/20/23 08:19 36.3 Room Air 01/20/23 08:00 64 16 171/108 (129) 94 Room Air 01/20/23 07:32 62 01/20/23 07:00 62 20 204/124 (150) 93 Room Air 01/20/23 06:00 78 22 158/99 (118) 93 Room Air 01/20/23 05:00 65 16 146/99 (115) 93 Room Air 01/20/23 04:13 99 Room Air 01/20/23 04:00 68 15 146/93 (110) 94 Room Air 01/20/23 04:00 36.7 01/20/23 03:00 84 13 174/97 (130) 98 Room Air 01/20/23 02:00 77 16 157/86 (108) 98 Room Air 01/20/23 01:00 75 01/20/23 01:00 75 21 179/111 (140) 94 Room Air 01/20/23 00:15 72 18 164/98 (124) 99 Room Air 01/20/23 00:00 78 17 172/106 (121) 98 Room Air 01/20/23 00:00 36.5 01/19/23 23:54 99 Room Air 01/19/23 23:00 81 17 189/100 (129) 98 Room Air 01/19/23 22:00 79 16 178/105 (135) 99 Room Air 01/19/23 21:00 82 19 162/85 (105) 100 Room Air 01/19/23 20:05 100 Room Air 01/19/23 20:00 82 175/99 (127) 100 Room Air 01/19/23 20:00 36.7 01/19/23 19:00 71 188/118 (136) 99 Room Air 01/19/23 19:00 69 01/19/23 18:15 70 24 173/133 (146) 100 Room Air 01/19/23 18:00 69 15 174/120 (138) 97 Room Air 01/19/23 17:52 71 01/19/23 17:47 68 01/19/23 17:45 100 Room Air 01/19/23 17:45 71 35 174/105 (128) 97 Room Air 01/19/23 17:45 66 16 181/120 98 Room Air 01/19/23 15:31 71 14 183/112 97 01/19/23 15:00 36.8 79 16 184/122 (142) 96 Room Air I & O 01/20/23 07:00 Intake Total 700 ml Output Total 600 ml Balance 100 ml Height & Weight Height: 5'11.00" Weight: 220lbs. oz. 99.694481ci; 29.47 BMI Method:Actual General Appearance: Other Gastrointestinal: normal bowel sounds, non tender, soft Results Lab Laboratory Tests 01/19/23 15:02 01/20/23 04:16 Assessment/Plan Assessment/Plan 1 MIAH WHITING MD Jan 20, 2023 10:20
--- NOTE | 2023-01-20 10:33 | Physical Therapy Evaluation ---
PT Evaluation-General Medical Diagnosis Admission Date Jan 19, 2023 at 17:42 Medical Diagnosis: CVA Onset Date: Jan 19, 2023 Therapy Diagnosis Therapy Diagnosis: Gait deficit, strength deficit Height/Weight Height (Feet): 5 Height (Inches): 11.00 Weight (Pounds): 220 Precautions Precautions/Isolations: Fall Prevention, Standard Precautions Weight Bear Status Right Lower Extremity: Right Full Weight Bearing Left Lower Extremity: Left Full Weight Bearing Referral Physician: Dr. Katz Reason for Referral: Evaluation/Treatment Medical History Reviewed History: Yes Social History Home: Apartment Current Living Status: Alone Entry Into Home: Stairs With Railing PT Steps Into Home: 3 Prior Prior Level of Function SCALE: Activities may be completed with or without assistive devices. 0-Bpvxtwowvu-jhizlmr completes the activity by him/herself with no assistance from a helper. 5-Set-up or Clean-up Assistance-helper sets up or cleans up; patient completes activity. [place] assists only prior to or following the activity. 4-Supervision or Touching Assistance-helper provides verbal cues and/or touching/steadying and/or contact guard assistance as patient completes activity. Assistance may be provided throughout the activity or intermittently. 3-Partial/Moderate Assistance-helper does LESS THAN HALF the effort. [place] lifts, holds or supports trunk or limbs, but provides less than half the effort. 2-Substantial/Maximal Assistance-helper does MORE THAN HALF the effort. [place] lifts or holds trunk or limbs and provides more than half the effort. 0-Aexqbxjkq-dcjrwc does ALL the effort. Patient does none of the effort to complete the activity. Or, the assistance of 2 or more helpers is required for the patient to complete the activity. If activity was not attempted, code reason: 7-Patient Refused. 9-Not Applicable-not attempted and the patient did not perform the activity b efore the current illness, exacerbation or injury. 10-Not Attempted due to Environmental Limitations-(lack of equipment, weather restraints, etc.). 88-Not Attempted due to Medical Conditions or Safety Concerns. Bed Mobility: 6 Transfers (B,C,W/C): 6 Gait: 6 Stairs: 6 Indoor Mobility (Ambulation): Independent Stairs: Independent Prior Devices Use: Walker PT Evaluation-Current Subjective Patient lying supine in bed upon PT arrival, agreeable to treatment. Patient rates pain at 0/10 currently. Objective Patient Orientation: Person, Place, Time, Situation Attachments: IV ROM/Strength ROM Lower Extremities WFLs BLEs all planes Strength Lower Extremities 3+/5 BLEs all planes Sensory Vision: Functional Hearing: Functional Sensation Right Lower Extremit: Intact Sensation Left Lower Extremity: Intact Transfers Roll Left to Right (QC): 3 Sit to Lying (QC): 3 Lying to Sitting/Side of Bed(Q: 3 Sit to Stand (QC): 3 Gait Does the Patient Walk?: No and Walking Goal IS indicated Mode of Locomotion: Walk Anticipated Mode of Locomotion: Walk Balance Sitting Static: Fair Sitting Dynamic: Fair Standing Static: Fair Standing Dynamic: Fair Assessment/Needs Patient performs all bed mobility and transfers with min a. Patient politely refuses gait training this evaluation. Patient performs sit to stand with min a and is able to sidestep x 3 to move himself higher in the bed. Patient in bed post treatment with all needs met, nursing notified, call light in hand and bed alarm activated. Rehab Potential: Fair PT Magician Helper Goals Halfway Goals PT Halfway Goals Time Frame: Feb 06, 2023 Roll Left & Right (QC): 6 Sit to Lying (QC): 6 Lying-Sitting on Side/Bed(QC): 6 Sit to Stand (QC): 6 Chair/Bpm-du-Kptpl Xfer(QC): 6 Toilet Transfer (QC): 6 Does the Patient Walk: Yes Walk 10 feet (QC): 6 Walk 50ft with 2 Turns (QC): 6 Walk 150 ft (QC): 4 1 Step (curb) (QC): 3 4 Steps (QC): 3 PT Plan Problem List Problem List: Activity Tolerance, Functional Strength, Safety, Balance, Gait, Transfer, Bed Mobility, ROM Treatment/Plan Treatment Plan: Continue Plan of Care Treatment Plan: Bed Mobility, Education, Functional Activity Singh, Functional Strength, Group Therapy, Gait, Safety, Therapeutic Exercise, Transfers Treatment Duration: Feb 06, 2023 Frequency: 6 times per week Estimated Hrs Per Day: .25 hour per day Safety Risks/Education Patient Education: Transfer Techniques Teaching Recipient: Patient Teaching Methods: Demonstration, Discussion Response to Teaching: Verbalize Understanding, Return Demonstration Time Time In: 1005 Time Out: 1024 DATE: Jan 20, 2023 Total Billed Treatment Time: 19 Total Billed Treatment Visit, DRAGAN OTERO PT Jan 20, 2023 10:33
--- NOTE | 2023-01-20 11:01 | Diagnostic Imaging Report ---
PROCEDURE: US carotid duplex, bilateral. INDICATION: 67-year-old male, stroke like symptoms, new onset left-sided weakness, slurred speech. TECHNIQUE: Multiple real-time grayscale images were obtained over the carotid arteries in various projections bilaterally. Additional spectral analysis and color Doppler and Duplex images were also obtained. CORRELATION: 12/27/2017 FINDINGS: Right carotid circulation: There is mild, diffuse atherosclerotic plaque throughout the common carotid artery carotid bulb as well as internal and external carotid arteries. The right common carotid artery is normal in course and caliber. The right internal carotid artery is patent. No hemodynamically significant stenosis is present at this time. Right external carotid artery is patent. Left carotid circulation: There is mild, diffuse atherosclerotic plaque throughout the common carotid artery carotid bulb as well as internal and external carotid arteries. The left common carotid artery is normal in course and caliber. The left internal carotid artery is patent. No hemodynamically significant stenosis is present at this time. Left external carotid artery is patent. Antegrade flow in the bilateral vertebral arteries. DOPPLER (peak systolic velocity M/S Right Left CCA 1.05 1.09 ICA Proximal .54 .43 ICA Mid .49 .58 ICA Distal .45 .46 RATIO .51 .53 ECA .84 .73 VERT .35 .57 IMPRESSION: 1. Mild diffuse atherosclerosis involving bilateral carotid arteries. 2. No hemodynamically significant stenosis of the internal carotid arteries at this time. Parameters based on the consensus panel Langford-Scale and Doppler ultrasound criteria published March 2003, Radiology, Volume 229. Dictated by: Dictated on workstation # [id number]
--- NOTE | 2023-01-20 12:31 | Speech Therapy Progress Note ---
Therapy Progress Note The clinician received the consultation for a clinical bedside swallowing evaluation and reviewed the medical chart. Per medical chart, the patient "passed" the RN Dysphagia Screening and is receiving a regular consistency diet with thin liquids. The patient stated he is not experiencing any concerns, difficulties or changes with his oropharyngeal swallowing function. The patient consumes a regular consistency diet with thin liquids at home. The patient agreed to take drinks of water via straw for the clinician as a screening. The patient does not display overt s/s of suspected aspiration with large straw drinks. As the patient "passed" the RN Dysphagia Screen and does not report dysphagia concerns, ST will sign off at this time. If concerns arise, please re- consult speech pathology. Visit x 1, NO CHARGE GINA FROST Jan 20, 2023 12:31
--- NOTE | 2023-01-20 14:32 | Occupational Therapy Eval ---
OT Evaluation-General/PLF Medical Diagnosis Admission Date Jan 19, 2023 at 17:42 Medical Diagnosis: CVA Onset Date: Jan 19, 2023 Therapy Diagnosis Therapy Diagnosis: WEAKNESS Height/Weight Height (Feet): 5 Height (Inches): 11.00 Weight (Pounds): 220 Precautions Precautions/Isolations: Fall Prevention, Standard Precautions Referral Physician: Dr. Kazt Referral Reason: Evaluation/Treatment Medical History Reviewed History: Yes Social History Home: Apartment Current Living Status: Alone Entry Into Home: Stairs With Railing Steps Into Home: 3 ADL-Prior Level of Function SCALE: Activities may be completed with or without assistive devices. 4-Xnnffijnun-yhdgutw completes the activity by him/herself with no assistance from a helper. 5-Set-up or Clean-up Assistance-helper sets up or cleans up; patient completes activity. [place] assists only prior to or following the activity. 4-Supervision or Touching Assistance-helper provides verbal cues and/or touching/steadying and/or contact guard assistance as patient completes activity. Assistance may be provided throughout the activity or intermittently. 3-Partial/Moderate Assistance-helper does LESS THAN HALF the effort. [place] lifts, holds or supports trunk or limbs, but provides less than half the effort. 2-Substantial/Maximal Assistance-helper does MORE THAN HALF the effort. [place] lifts or holds trunk or limbs and provides more than half the effort. 3-Kdkibftph-fsggcn does ALL the effort. Patient does none of the effort to complete the activity. Or, the assistance of 2 or more helpers is required for the patient to complete the activity. If activity was not attempted, code reason: 7-Patient Refused. 9-Not Applicable-not attempted and the patient did not perform the activity before the current illness, exacerbation or injury. 10-Not Attempted due to Environmental Limitations-(lack of equipment, weather restraints, etc.). 88-Not Attempted due to Medical Conditions or Safety Concerns. Self Care: Independent Functional Cognition: Independent OT Current Status Subjective REFUSES OUT OF ROOM ACTIVITY. PERFORMS ALL REQUESTS BEDSIDE. DECLINES AMBULATION AND TRANSFERS TO CHAIR. Mental Status/Objective Patient Orientation: Confused, Place Attachments: Otero Catheter, IV, Telemetry Current Upper Extremity ROM BUE ROM WFL Upper Extremity Coordination TIP TO FINGER TIP WFLS, TIP TO NOSE WFLS, TOUCH TOES WFLS Upper Extremity Strength -4/5 ADL-Treatment ADL-Current PATIENT SPEECH DIFFICULT TO UNDERSTAND AT TIMES. Eating (QC): 5 Oral Hygiene (QC): 5 Shower/Bathe Self (QC): 88 Upper Body Dressing (QC): 4 Lower Body Dressing (QC): 7 On/Off Footwear (QC): 4 (SUPINE IN RCLINED BED W/ FIGURE FOUR CROSS LEG POSITION) Toileting Hygiene (QC): 88 Education OT Patient Education: Correct positioning, Home exercise program, Modified ADL techniques, Progress toward Goal/Update tx plan, Purpose of tx/functional activities, Reviewed precautions, Rehab process, Safety issues, Transfer techniques, Use of adapted equipment Teaching Recipient: Patient Teaching Methods: Demonstration, Discussion Response to Teaching: Reinforcement Needed OT Senior Living Goals Relocation Associate Goals Time Frame: Jan 29, 2023 Eating (QC): 6 Oral Hygiene (QC): 6 Toileting Hygiene (QC): 6 Shower/Bathe Self (QC): 6 Upper Body Dressing (QC): 6 Lower Body Dressing (QC): 6 1=Demonstrate adherence to instructed precautions during ADL tasks. 2=Patient will verbalize/demonstrate understanding of assistive devices/modifications for ADL. 3=Patient will improve strength/tolerance for activity to enable patient to perform ADL's. OT Education/Plan Problem List/Assessment Assessment: Decreased Activ Tolerance, Decreased Safety Aware, Decreased UE Strength, Impaired Self-Care Skills Discharge Recommendations Plan/Recommendations: Continue POC Treatment Plan/Plan of Care Treatment,Training & Education: Yes Patient would benefit from OT for education, treatment and training to promote independence in ADL's, mobility, safety and/or upper extremity function for ADL's. Plan of Care: ADL Retraining, Functional Mobility, Group Exercise/Act as Ind, UE Funct Exercise/Act Treatment Duration: Jan 29, 2023 Frequency: 3 times per week (3-5 TIMES PER WEEK) Estimated Hrs Per Day: .25 hour per day Agreement: Yes Rehab Potential: Fair Time Start Time: 13:40 Stop Time: 13:57 DATE: Jan 20, 2023 Total Time Billed (hr/min): 17 Billed Treatment Time EVM 17 MIN DANIEL SHI OT Jan 20, 2023 14:32
--- NOTE | 2023-01-20 18:47 | History & Physical-Hospitalist ---
History of Present Illness HPI/Chief Complaint Asael Tai is a 67 year old male with PMH HTN, T2DM, HLD, neuropathy, history of strokes, who presented with weakness. A home health nurse was concerned that he was having more weakness and word finding difficulty than normal. He has a history of multiple strokes and reportedly has some dysphagia and right sided weakness. Upon my exam, he denies any weakness. He denies dysphagia. He denies dysphasia. He feels like he is at his baseline. He denies pain. He denies shortness of breath. He denies nausea and vomiting. Source: patient Exam Limitations: no limitations Date Seen 01/20/23 Time Seen by a Provider: 10:05 Attending Physician No,Local Physician PCP Admitting Physician: Tomas Johnston MD Attending Physician: Tomas Johnston MD Referring Physician Date of Admission Jan 19, 2023 at 17:42 Home Medications & Allergies Home Medications Reviewed patient Home Medication Reconciliation performed by pharmacy medication reconciliations indoor plant technician and/or nursing. Patients Allergies have been reviewed. Allergies Allergies Coded Allergies No Known Drug Allergies (Unverified12/16/16) Past Secshgp-Afbpyl-Egowyh Hx Patient Social History Tobacco Use?: No Smoking Status: Current Everyday Smoker Use of E-Cig and/or Vaping dev: No Substance use?: No Alcohol Use?: No Pt feels they are or have been: No Immunizations Up To Date First/Initial COVID19 Vaccinat: RECEIVED, UNK WHEN Second COVID19 Vaccination Luis: RECEIVED, UNK WHEN Tetanus Booster (TDap): More Than 5 Years Current Status Advance Directives: No Advance Directive Location: Home Communicates: Verbally Primary Language: [place] Preferred Spoken Language: Cong[place]ese Is interpretation needed?: No Sensory deficits: Speech impairment Implanted or Applied Medical D: None Past Medical History Coronary Artery Disease, Hypertension Stroke Diabetes, Non-Insulin dep Did You Recieve Any Treatments: No Depression Family Medical History No Pertinent Family Hx Review of Systems Constitutional: weakness Respiratory: no symptoms reported Cardiovascular: no symptoms reported Gastrointestinal: no symptoms reported Physical Exam Physical Exam Vital Signs Vital Signs - First Documented 01/19/23 15:00 Temp 36.8 Pulse 79 Resp 16 B/P (MAP) 184/122 (142) Pulse Ox 96 O2 Delivery Room Air Capillary Refill : Height, Weight, BMI Height: 5'11.00" Weight: 220lbs. oz. 99.908064pr; 29.47 BMI Method:Actual General Appearance: No Apparent Distress, WD/WN HEENT: PERRL/EOMI, Pharynx Normal, Other (bilateral conjunctival erythema) Neck: Normal Inspection, Supple Respiratory: Lungs Clear, Normal Breath Sounds, No Respiratory Distress Cardiovascular: Regular Rate, Rhythm, No Edema, No Murmur Gastrointestinal: Normal Bowel Sounds, Non Tender, Soft Extremity: Normal Inspection, No Pedal Edema Neurologic/Psychiatric: Alert, No Motor/Sensory Deficits, Normal Mood/Affect; No Facial Droop, No Motor Weakness; Other (dysphasia) Skin: Normal Color, Warm/Dry Results Results/Procedures Labs Laboratory Tests 01/19/23 15:02 01/20/23 04:16 Patient resulted labs reviewed. Imaging: Reviewed Imaging Report Assessment/Plan Admission Diagnosis Hypertensive urgency Admission Status: Observation Assessment and Plan HTN urgency Continue Amlodipine and Metoprolol Add Lisinopril Hydralazine as needed Stroke like symptoms History of stroke HLD Resolved CT head negative for acute abnormalities Echo with normal EF, grade I diastolic dysfunction, concentric hypertrophy, mild pulmonary hypertension Carotid ultrasound with mild atherosclerosis Continue Plavix Continue Lipitor PT/OT/ST T2DM Sliding scale insulin DVT prophylaxis: Lovenox Diagnosis/Problems Diagnosis/Problems (1) Hypertensive urgency Status: Acute (2) Stroke-like symptoms Status: Acute (3) HTN (hypertension) Status: Acute Qualifiers: Hypertension type: primary hypertension Qualified Codes: I10 - Essential (primary) hypertension (4) T2DM (type 2 diabetes mellitus) Status: Chronic Qualifiers: Diabetes mellitus usp insulin use: without watermelon harvesting supervisor use (5) HLD (hyperlipidemia) Status: Chronic (6) History of stroke Status: Chronic Clinical Quality Measures Stroke: Date of last known well: Jan 17, 2023 Symptoms onset unknown: Yes TOMAS JOHNSTON MD Jan 20, 2023 18:47
[2023-01-20] MEDS: GABAPENTIN 300 MG CAPSULE PO SCH (20:17)
[2023-01-20] MEDS: ENOXAPARIN 40 MG/0.4 ML SYRINGE SC SCH (20:18)
[2023-01-21 06:05] LABS: BASOPHILS # (AUTO) 0.1 10^3/uL (0.0-0.1); BASOPHILS % (AUTO) 1 % (0-10); EOSINOPHILS # (AUTO) 0.2 10^3/uL (0.0-0.3); EOSINOPHILS % (AUTO) 3 % (0-10); HEMATOCRIT 46 % (40-54); HEMOGLOBIN 14.5 g/dL (13.3-17.7); LYMPHOCYTES # (AUTO) 2.5 10^3/uL (1.0-4.0); LYMPHOCYTES % (AUTO) 32 % (12-44); MEAN CORPUSCULAR HEMOGLOBIN 25 pg (25-34); MEAN CORPUSCULAR HGB CONC 32 g/dL (32-36); MEAN CORPUSCULAR VOLUME 78 fL (80-99); MEAN PLATELET VOLUME 10.4 fL (9.0-12.2); MONOCYTES # (AUTO) 0.7 10^3/uL (0.0-1.0); MONOCYTES % (AUTO) 9 % (0-12); NEUTROPHILS # (AUTO) 4.3 10^3/uL (1.8-7.8); NEUTROPHILS % (AUTO) 55 % (42-75); PLATELET COUNT 161 10^3/uL (130-400); WHITE BLOOD COUNT 7.7 10^3/uL (4.3-11.0)
[2023-01-21 06:06] LABS: ALBUMIN 3.7 GM/DL (3.2-4.5); POTASSIUM 3.6 MMOL/L (3.6-5.0)
[2023-01-21 06:07] LABS: CALCIUM 8.8 MG/DL (8.5-10.1)
[2023-01-21 06:08] LABS: TOTAL PROTEIN 6.6 GM/DL (6.4-8.2)
[2023-01-21 06:10] LABS: BILIRUBIN,TOTAL 0.6 MG/DL (0.1-1.0)
[2023-01-21 06:11] LABS: PHOSPHORUS 3.5 MG/DL (2.3-4.7)
[2023-01-21 06:12] LABS: CREATININE SERUM 1.27 MG/DL (0.60-1.30)
[2023-01-21 06:14] LABS: MAGNESIUM 2.1 MG/DL (1.6-2.4)
[2023-01-21] MEDS: POTASSIUM CL 10MEQ/50ML IVPB 50 ML IV SCH ×5 (06:20→09:30)
[2023-01-21] MEDS: inSUlin ASPART 1 UNIT/0.01 ML (PER UNIT) SC SCH ×2 (06:20→11:58)
[2023-01-21] MEDS: MAGNESIUM 1 GM/100 ML IVPB 100 ML IV SCH (06:20)
[2023-01-21] MEDS: POTASSIUM CHLORIDE 20 MEQ TABLET PO SCH (06:20)
[2023-01-21] MEDS ORDERED: POTASSIUM CL 10MEQ/50ML IVPB 200 ML IV ONE (06:24)
[2023-01-21] MEDS: CATHETER FLUSH 10 ML SYR IVP SCH (06:30)
[2023-01-21] MEDS: amLODIPine 10 MG TABLET PO SCH (09:36)
[2023-01-21] MEDS: DOCUSATE SODIUM 100 MG CAPSULE PO SCH ×2 (09:36→13:00)
[2023-01-21] MEDS: CLOPIDOGREL 75 MG TABLET PO SCH (09:36)
[2023-01-21] MEDS: SENNOSIDES 8.6 MG TABLET PO SCH ×2 (09:36→13:01)
--- NOTE | 2023-01-21 11:33 | Physical Therapy Daily Note ---
PT Daily Note-Current Subjective Patient reports he wants to go home and agrees to PT. Pain Section J - Health Conditions 1. Rarely or not at all 2. Occasionally 3. Frequently 4. Almost constantly 8. Unable to answer Pain Effect on Sleep: 1 Pain Interference with Therapy: 1 Pain Interference w/Day-to-Day: 1 Transfers SCALE: Activities may be completed with or without assistive devices. 6-Isnoqfolse-skkeiwf completes the activity by him/herself with no assistance from a helper. 5-Set-up or Clean-up Assistance-helper sets up or cleans up; patient completes activity. [place] assists only prior to or following the activity. 4-Supervision or Touching Assistance-helper provides verbal cues and/or touching/steadying and/or contact guard assistance as patient completes activity. Assistance may be provided throughout the activity or intermittently. 3-Partial/Moderate Assistance-helper does LESS THAN HALF the effort. [place] lifts, holds or supports trunk or limbs, but provides less than half the effort. 2-Substantial/Maximal Assistance-helper does MORE THAN HALF the effort. [place] lifts or holds trunk or limbs and provides more than half the effort. 1-Sqqdpteuv-bbpvfn does ALL the effort. Patient does none of the effort to complete the activity. Or, the assistance of 2 or more helpers is required for the patient to complete the activity. If activity was not attempted, code reason: 7-Patient Refused. 9-Not Applicable-not attempted and the patient did not perform the activity be fore the current illness, exacerbation or injury. 10-Not Attempted due to Environmental Limitations-(lack of equipment, weather restraints, etc.). 88-Not Attempted due to Medical Conditions or Safety Concerns. Lying to Sitting/Side of Bed(Q: 4 Sit to Stand (QC): 4 Chair/Vkn-dv-Cqizc Xfer(QC): 4 Weight Bearing Right Lower Extremity: Right Full Weight Bearing Left Lower Extremity: Left Full Weight Bearing Gait Training Distance: 80' Walk 10 feet (QC): 4 Walk 50 ft with 2 Turns(QC): 4 Gait Assistive Device: FWW slight left LE lag/VC to correct (patient reports this is how he walks) Assessment Patient is SBA to CGA with mobility with noted left LE lag with gait. Patient reports he lives alone with minimal assistance. Patient denies falls. RN notified of patient LOF. Patient remains a high fall risk. PT Senior Care Goals Senior Care Goals PT Index Clerk Goals Time Frame: Feb 06, 2023 Roll Left & Right (QC): 6 Sit to Lying (QC): 6 Lying-Sitting on Side/Bed(QC): 6 Sit to Stand (QC): 6 Chair/Xdi-zw-Fktal Xfer(QC): 6 Toilet Transfer (QC): 6 Does the Patient Walk: Yes Walk 10 feet (QC): 6 Walk 50ft with 2 Turns (QC): 6 Walk 150 ft (QC): 4 1 Step (curb) (QC): 3 4 Steps (QC): 3 PT Plan Treatment/Plan Treatment Plan: Continue Plan of Care Treatment Plan: Bed Mobility, Education, Functional Activity Singh, Functional Strength, Group Therapy, Gait, Safety, Therapeutic Exercise, Transfers Treatment Duration: Feb 06, 2023 Frequency: 6 times per week Estimated Hrs Per Day: .25 hour per day Time Time In: 1120 Time Out: 1130 DATE: Jan 21, 2023 Total Billed Treatment Time: 10 Total Billed Treatment 1 visit GT 10 min DAYDAY MCLEAN PT Jan 21, 2023 11:33
[2023-01-21] MEDS ORDERED: LISI40TA9 PO (11:35)
--- NOTE | 2023-01-21 11:38 | D/C HH Face to Face Order ---
D/C Face to Face Orders Instructions for Patient Via [facility], Patient Instructions/FollowUp: see instructioins Physician to follow Patient: Nidia Discharge Diet for Home: ADA Diet, Low Sodium Diet Patient Data-Allergies,Ht & Wt Patient Allergies: Coded Allergies: No Known Drug Allergies (Unverified , 12/16/16) Height (Feet): 5 Height (Inches): 11.00 Weight (Pounds): 220 Home Health Need/Face to Face Date of Face to Face: Jan 21, 2023 Clinical Findings: Generalized weakness and fatigue, Instability, Muscle weakness, Unsteady gait I have seen Pt nkcu-gl-pruo: Yes Discharged To: Home Diagnosis/Conditions: HTN T2DM HLD History of strokes Problems/Diagnosis/Condition: (1) Hypertensive urgency (2) Stroke-like symptoms (3) History of stroke (4) HTN (hypertension) (5) T2DM (type 2 diabetes mellitus) (6) HLD (hyperlipidemia) Patient is Homebound due to: [place] fall risk due to instabilty, Muscle weakness Homebound Status Due to the above stated illness, injury or surgical procedure (medical condition or diagnosis) and associated clinical findings, the patient is homebound because of his/her inability to leave home except with aid of a supportive device and/or person AND leaving the home requires a considerable and taxing effort or is medically contraindicated. Pt req the following assistanc: Aid of another person, Walker Home Health Nursing Orders Home Health Services Order: Nursing Services, Subway Train Operator-Evaluate & Treat, Physical Therapy-Evaluate & Treat Home Health Infusion Therapy Line Start Date: Jan 19, 2023 Therapy Orders Therapy Orders: OT (must have SN or PT order), Physical Therapy Therapy Specific Orders: Eval assistive deivces, Teach enviro modifications/safety, Gait training, Increase strength/endurance Certify Stmt I certify that this patient is under my care and that I, a nurse practitioner or a physician; a assistant men's soccer coach working with me, had a face to face encounter that - meets the physician face to face encounter requirements with this patient as dated. TOMAS JOHNSTON MD Jan 21, 2023 11:38
[2023-01-21] MEDS ORDERED: POTASSIUM CHLORIDE 20 MEQ TABLET PO NR (12:00)
[2023-01-21 13:24] VITALS: BP 139/86
--- NOTE | 2023-01-22 14:51 | Physician Query-Final Dx ---
Final Diagnosis Give Final Diagnosis Please give Final Diagnosis RAE,MayJan 22, 2023 14:51
== END 2023-01-21 11:36 | disposition home health service (06) ==
LOC: EDUNIT# 14:55 → ER 14:56 → ICU 17:42
PROVIDERS: ADMIT Internal Medicine; ATTEND Internal Medicine
DX: I16.0 Hypertensive urgency (principal); I10 Essential (primary) hypertension; E78.5 Hyperlipidemia, unspecified; E11.9 Type 2 diabetes mellitus without complications; F17.200 Nicotine dependence, unspecified, uncomplicated; Z79.899 Other long term (current) drug therapy; Z79.84 Long term (current) use of oral hypoglycemic drugs; Z86.73 Personal history of transient ischemic attack (TIA), and cerebral infarction without residual deficits
CPT/HCPCS: 36415; 70450; 71045; 80053; 80061; 81000; 82947; 83735; 84100; 84484; 85025; 85610; 85730; 87081; 87088; 93005; 93306; 93880; 96366; 96372; 96375; 96376; G0378